=== PATIENT | male | born 1970 | race African-American/Black ===

== ENCOUNTER 2024-06-19 03:41 | Inpatient (IN) | payer OTHER ==
[~2024-06-19] VITALS: Ht 190.5 cm; Wt 102.1 kg
[~2024-06-19 03:41] MED LIST: AMLO10TA80 PO; KEPP500 MT; LOSA-413 PO
[2024-06-19 04:34] LABS: BASOPHILS % 0.7 % (0.0-2.0); EOSINOPHILS % 1.9 % (0.0-5.0); HEMATOCRIT. 37.2 % (42.0-52.0); HEMOGLOBIN. 13.3 g/dL (14.0-18.0); LYMPHOCYTES % 36.8 % (20.0-50.0); MEAN CORPUSCULAR HEMOGLOBIN 34.9 pg (28.0-32.0); MEAN CORPUSCULAR HGB CONC 35.7 g/dL (31.0-37.0); MEAN CORPUSCULAR VOLUME 97.9 fL (80.0-94.0); MEAN PLATELET VOLUME 9.4 fl (7.4-10.4); MONOCYTES % 9.3 % (2.0-8.0); NEUTROPHILS % 51.3 % (40.0-76.0); PLATELET 163 x1000/uL (130-400); RED CELL DISTRIBUTION WIDTH 13.8 % (11.6-14.6); WHITE BLOOD COUNT 4.1 x1000/uL (4.5-11.0)
[2024-06-19 04:39] LABS: CHLORIDE 111 mEq/L (98-107); POTASSIUM 4.1 mEq/L (3.5-5.1); SODIUM 142 mEq/L (136-145)
[2024-06-19 04:40] LABS: CARBON DIOXIDE 21 mEq/L (21-32)
[2024-06-19 04:45] LABS: GLUCOSE 140 mg/dL (70-105); UREA NITROGEN BLOOD 8 mg/dL (9-23)
[2024-06-19 04:47] LABS: CREATINE KINASE 330 IU/L (46-171)
[2024-06-19] MEDS: LEVETIRACETAM 1000MG PREMIX 100 ML IV ONE (04:47)
[2024-06-19 04:48] LABS: LACTIC ACID 2.8 mmol/L (0.4-2.0)
[2024-06-19 05:15] LABS: DIFFERENTIAL COMMENT 1
[2024-06-19] MEDS ORDERED: DOCUSATE SODIUM 100MG CAPSULE PO PRN (09:00)
[2024-06-19] MEDS ORDERED: IPRATROPIUM/ALBUTEROL 0.5-3(2.5)MG/3ML NEB HHN PRN (09:00)
[2024-06-19] MEDS ORDERED: LEVETIRACETAM 500MG PREMIX 100 ML IV SCH (09:00)
[2024-06-19] MEDS ORDERED: LORAZEPAM 2MG/ML INJ IV PRN ×3 (09:00→18:00)
[2024-06-19] MEDS ORDERED: MAGNESIUM/ALUMINUM HYDROXIDE/SIMETHICONE 30ML UDC PO PRN (09:00)
[2024-06-19] MEDS ORDERED: ONDANSETRON HCL 4MG/2ML INJ IV PRN (09:00)
[2024-06-19] MEDS ORDERED: LORAZEPAM 1MG TABLET PO PRN (09:00)
[2024-06-19] MEDS ORDERED: ACETAMINOPHEN 325MG TABLET PO PRN ×2 (09:00)
[2024-06-19 10:22] LABS: LDL CHOLESTEROL 50 mg/dL (5-100); TRIGLYCERIDE 655 mg/dL (0-150)
[2024-06-19 10:23] LABS: ALANINE AMINOTRANSFERASE 140 IU/L (10-49); ALBUMIN 4.3 g/dL (3.2-4.8); ASPARTATE AMINOTRANSFERASE 165 IU/L (<34); CHOLESTEROL 214 mg/dL (<200)
[2024-06-19 10:24] LABS: BILIRUBIN DIRECT 0.1 mg/dL (<=3.0); BILIRUBIN TOTAL 0.4 mg/dL (0.1-1.0); HDL CHOLESTEROL 40 mg/dL (>55); PHOSPHORUS 2.6 mg/dL (2.5-4.9); PROTEIN TOTAL 7.1 g/dL (6.0-8.3)
[2024-06-19 10:26] LABS: THYROID STIMULATING HORMONE 2.05 uIU/mL (0.55-4.78)
[2024-06-19 10:39] LABS: TROPONIN I HIGH SENSITIVITY < 4 ng/L (3.0-53)
[2024-06-19] MEDS ORDERED: LOSA50TA41 (10:44)
[2024-06-19] MEDS ORDERED: METO-539 (10:44)
[2024-06-19] MEDS ORDERED: ALLO100T (10:44)
[2024-06-19] MEDS ORDERED: GABA-1180 (10:44)
[2024-06-19 11:31] LABS: FOLIC ACID (FOLATE) SERUM 2.01 ng/mL (>5.38)
[2024-06-19 11:32] LABS: VITAMIN B12 SERUM 642 pg/mL (211-911)
[2024-06-19] MEDS: SODIUM CHLORIDE 0.9% 1,000 ML IV SCH (11:43)
[2024-06-19] MEDS: LOSARTAN 50 MG TABLET PO SCH (12:11)
[2024-06-19] MEDS: CLONIDINE 0.1MG TABLET PO PRN (12:12)
[2024-06-19 12:21] LABS: T4 FREE 1.08 ng/dL (0.89-1.76)
[2024-06-19] MEDS: FOLIC ACID 1 MG, THIAMINE HCL 100 MG, MVI, ADULT NO.1 10 ML in DEXTROSE 5% WATER 1,000 ML IV ONE (13:14)
[2024-06-19] MEDS: FISH OIL/OMEGA-3 FATTY ACIDS 1000MG CAPSULE PO SCH (13:14)
[2024-06-19] MEDS: CHLORDIAZEPOXIDE 25MG CAPSULE PO PRN (13:14)
[2024-06-19 15:12] LABS: CLARITY URINE CLEAR (CLEAR); COLOR URINE YELLOW (YELLOW); GLUCOSE URINE NEGATIVE (NEGATIVE); KETONES URINE NEGATIVE (NEGATIVE); LEUKOCYTE ESTERASE URINE NEGATIVE (NEGATIVE); NITRITE URINE NEGATIVE (NEGATIVE); OCCULT BLOOD URINE NEGATIVE (NEGATIVE); PH URINE 7.5 (4.5-8.0); PROTEIN URINE TRACE (NEGATIVE); SPECIFIC GRAVITY URINE 1.009 (1.005-1.030); UROBILINOGEN URINE 0.2 E.U./dL (0.2-1.0)
[2024-06-19 15:30] LABS: BACTERIA URINE NONE SEEN; RBC URINE NONE SEEN /hpf (0-2); SQUAMOUS EPITHELIAL CELL URINE NONE SEEN /lpf (RARE/1+); WBC URINE 0-2 /hpf (0-2); YEAST URINE NONE SEEN
[2024-06-19 15:42] LABS: *AMPHETAMINES SCREEN URINE NEGATIVE (NEGATIVE); *BARBITURATES SCREEN URINE NEGATIVE (NEGATIVE); *BENZODIAZEPINES SCREEN URINE NEGATIVE (NEGATIVE); *COCAINE SCREEN URINE NEGATIVE (NEGATIVE); CANNABINOID URINE SCREEN NEGATIVE (NEGATIVE); METHADONE URINE SCREEN NEGATIVE (NEGATIVE); OPIATES URINE SCREEN NEGATIVE (NEGATIVE); PHENCYCLIDINE URINE SCREEN NEGATIVE (NEGATIVE)
[2024-06-19 15:43] LABS: ECSTASY MDMA SCREEN URINE NEGATIVE (NEGATIVE)
[2024-06-19 17:00] VITALS: BP 154/98; PULSE 75; RESP 18; TEMP 36.50292; TEMP 36.5292; O2SAT 98
[2024-06-19 20:00] VITALS: BP 149/101; PULSE 82; RESP 19; TEMP 36.78072; O2SAT 98
[2024-06-19 20:09] LABS: CREATINE KINASE 322 IU/L (46-171)
[2024-06-19] MEDS: LEVETIRACETAM 1500MG PREMIX 100 ML IV SCH (21:41)
[2024-06-19 23:57] LABS: CREATINE KINASE 223 IU/L (46-171)
[2024-06-20] VITALS: BP 129/87; PULSE 64; RESP 20; TEMP 36.16956; O2SAT 99
[2024-06-20 04:00] VITALS: BP 114/78; PULSE 66; RESP 19; TEMP 36.3918; O2SAT 97
[2024-06-20 08:00] VITALS: BP 132/82; PULSE 71; RESP 18; TEMP 36.78072; O2SAT 100
[2024-06-20 08:55] LABS: BASOPHILS % 0.7 % (0.0-2.0); EOSINOPHILS % 2.3 % (0.0-5.0); HEMATOCRIT. 38.7 % (42.0-52.0); HEMOGLOBIN. 13.1 g/dL (14.0-18.0); LYMPHOCYTES % 36.5 % (20.0-50.0); MEAN CORPUSCULAR HEMOGLOBIN 33.9 pg (28.0-32.0); MEAN CORPUSCULAR HGB CONC 33.7 g/dL (31.0-37.0); MEAN CORPUSCULAR VOLUME 100.4 fL (80.0-94.0); MONOCYTES % 11.6 % (2.0-8.0); NEUTROPHILS % 48.9 % (40.0-76.0); RED BLOOD CELL COUNT 3.86 mill/uL (4.7-6.1); RED CELL DISTRIBUTION WIDTH 14.1 % (11.6-14.6)
[2024-06-20] MEDS ORDERED: AMLODIPINE 10MG TABLET PO SCH (09:00)
[2024-06-20 09:14] LABS: DIFFERENTIAL COMMENT 1
[2024-06-20 09:15] LABS: ADD RBC MORPHOLOGY YES
[2024-06-20 09:18] LABS: CALCIUM 9.5 mg/dL (8.7-10.4); CARBON DIOXIDE 20 mEq/L (21-32); CHLORIDE 110 mEq/L (98-107); POTASSIUM 3.6 mEq/L (3.5-5.1); SODIUM 141 mEq/L (136-145)
[2024-06-20 09:24] LABS: GLUCOSE 104 mg/dL (70-105); UREA NITROGEN BLOOD 6 mg/dL (9-23)
[2024-06-20] MEDS: THIAMINE HCL 100MG TABLET PO SCH (09:50)
[2024-06-20] MEDS: MULTIVITAMINS,THER W-MINERALS TABLET PO SCH (09:51)
[2024-06-20] MEDS: FOLIC ACID 1MG TABLET PO SCH (09:51)
[2024-06-20] MEDS: LEVETIRACETAM 1500MG PREMIX 100 ML IV SCH (11:30)
[2024-06-20 12:00] VITALS: BP 138/98; PULSE 89; RESP 20; TEMP 36.89184; O2SAT 93
[2024-06-20 15:06] VITALS: BP 138/94; PULSE 89; TEMP 98.4; O2SAT 93
[2024-06-21 09:03] LABS: PLATELET 115 x1000/uL (130-400); PLATELET ESTIMATE NORMAL
[2024-06-22 17:06] LABS: ETHANOL URINE Negative % (Cutoff=0.020)
== END 2024-06-20 16:25 | disposition home or self-care (01) | DRG 101 ==
LOC: ER 03:41 → 8WST 04:50
PROVIDERS: ADMIT Internal Medicine; ATTEND Internal Medicine
DX: G40.901 Epilepsy, unspecified, not intractable, with status epilepticus (principal); E78.5 Hyperlipidemia, unspecified; I10 Essential (primary) hypertension; D53.9 Nutritional anemia, unspecified; E78.1 Pure hyperglyceridemia; F10.20 Alcohol dependence, uncomplicated; G62.9 Polyneuropathy, unspecified; Z88.0 Allergy status to penicillin; Z79.899 Other long term (current) drug therapy; Z82.0 Family history of epilepsy and other diseases of the nervous system
CPT/HCPCS: 36415; 71045; 80048; 80061; 80076; 80305; 80320; 81003; 82550; 82607; 82746; 82962; 83605; 83735; 84100; 84439; 84443; 84484; 85025; 87493; 99291; J1953; J3411; J3490; J7070

== ENCOUNTER 2024-09-03 19:14 | Inpatient (IN) | payer OTHER ==
[~2024-09-03] VITALS: Ht 182.9 cm; Wt 98.7 kg
[~2024-09-03 19:14] MED LIST changes: +ALLO100T; +GABA-1180; +LOSA50TA41; +METO-539
[2024-09-03 19:15] VITALS: O2SAT 98
[2024-09-03 19:54] LABS: BASOPHILS % 0.5 % (0.0-2.0); EOSINOPHILS % 2.1 % (0.0-5.0); HEMATOCRIT. 40.2 % (42.0-52.0); HEMOGLOBIN. 13.6 g/dL (14.0-18.0); LYMPHOCYTES % 42.3 % (20.0-50.0); MEAN CORPUSCULAR HEMOGLOBIN 32.5 pg (28.0-32.0); MEAN CORPUSCULAR HGB CONC 33.8 g/dL (31.0-37.0); MEAN CORPUSCULAR VOLUME 96.2 fL (80.0-94.0); MONOCYTES % 10.6 % (2.0-8.0); NEUTROPHILS % 44.5 % (40.0-76.0); PLATELET 135 x1000/uL (130-400); RED BLOOD CELL COUNT 4.18 mill/uL (4.7-6.1); RED CELL DISTRIBUTION WIDTH 13.7 % (11.6-14.6); WHITE BLOOD COUNT 4.9 x1000/uL (4.5-11.0)
[2024-09-03] MEDS: SODIUM CHLORIDE 0.9% 1,000 ML IV ONE (19:57)
[2024-09-03] MEDS: LEVETIRACETAM 1000MG PREMIX 100 ML IV ONE (19:57)
[2024-09-03 20:02] LABS: CHLORIDE 108 mEq/L (98-107); POTASSIUM 4.1 mEq/L (3.5-5.1); SODIUM 143 mEq/L (136-145)
[2024-09-03 20:03] LABS: CALCIUM 9.3 mg/dL (8.7-10.4); CARBON DIOXIDE 24 mEq/L (21-32)
[2024-09-03 20:08] LABS: CREATININE 1.1 mg/dL (0.6-1.3); GLUCOSE 102 mg/dL (70-105)
[2024-09-03 20:09] LABS: ETHANOL BLOOD 16 mg/dL (<10); UREA NITROGEN BLOOD 6 mg/dL (9-23)
[2024-09-03 20:10] LABS: TROPONIN I HIGH SENSITIVITY 4 ng/L (3.0-53)
[2024-09-03 20:26] LABS: CARBAMAZEPINE < 0.4 ug/mL (4-12); PHENOBARBITAL < 3.0 ug/mL (15.0-40.0); PHENYTOIN < 2.0 ug/mL (10-20); VALPROIC ACID < 3.0 ug/mL (50-100)
[2024-09-03 23:02] LABS: CLARITY URINE CLEAR (CLEAR); COLOR URINE YELLOW (YELLOW); GLUCOSE URINE NEGATIVE (NEGATIVE); KETONES URINE NEGATIVE (NEGATIVE); LEUKOCYTE ESTERASE URINE NEGATIVE (NEGATIVE); NITRITE URINE NEGATIVE (NEGATIVE); OCCULT BLOOD URINE NEGATIVE (NEGATIVE); PROTEIN URINE NEGATIVE (NEGATIVE); SPECIFIC GRAVITY URINE 1.011 (1.005-1.030); UROBILINOGEN URINE 0.2 E.U./dL (0.2-1.0)
[2024-09-03 23:10] LABS: *AMPHETAMINES SCREEN URINE NEGATIVE (NEGATIVE); *BARBITURATES SCREEN URINE NEGATIVE (NEGATIVE); *BENZODIAZEPINES SCREEN URINE NEGATIVE (NEGATIVE); *COCAINE SCREEN URINE NEGATIVE (NEGATIVE); CANNABINOID URINE SCREEN NEGATIVE (NEGATIVE); ECSTASY MDMA SCREEN URINE NEGATIVE (NEGATIVE); METHADONE URINE SCREEN NEGATIVE (NEGATIVE); OPIATES URINE SCREEN NEGATIVE (NEGATIVE); PHENCYCLIDINE URINE SCREEN NEGATIVE (NEGATIVE)
[2024-09-03 23:50] VITALS: BP 161/117; PULSE 85; RESP 19; TEMP 36.3
[2024-09-04] VITALS: BP 161/117; PULSE 85; RESP 19; TEMP 36.3; O2SAT 99
[2024-09-04] MEDS: LOSARTAN 50 MG TABLET PO NR (01:43)
[2024-09-04 04:00] VITALS: BP 125/88; PULSE 76; RESP 20; TEMP 35.8; O2SAT 98
[2024-09-04 08:00] VITALS: BP 138/96; PULSE 80; RESP 16; TEMP 36.6; O2SAT 96
[2024-09-04 12:00] VITALS: BP 152/101; PULSE 85; RESP 16; TEMP 36.9; O2SAT 99
[2024-09-04] MEDS ORDERED: GUAIFENESIN 200MG/10ML SUGAR FREE UDC PO PRN (12:15)
[2024-09-04] MEDS ORDERED: ONDANSETRON HCL 4MG/2ML INJ IV PRN (12:15)
[2024-09-04] MEDS ORDERED: LORAZEPAM 2MG/ML UD SYRINGE IV PRN (12:15)
[2024-09-04] MEDS ORDERED: CLONIDINE 0.1MG TABLET PO PRN (12:15)
[2024-09-04] MEDS ORDERED: LORAZEPAM 0.5MG TABLET PO PRN (12:15)
[2024-09-04] MEDS ORDERED: ACETAMINOPHEN 325MG TABLET PO PRN ×2 (12:15)
[2024-09-04] MEDS ORDERED: LEVETIRACETAM 1,500MG in NACL 100ML PREMIX IV SCH (12:15)
[2024-09-04] MEDS ORDERED: IPRATROPIUM/ALBUTEROL 0.5-3(2.5)MG/3ML NEB HHN PRN (12:15)
[2024-09-04] MEDS ORDERED: HYDRALAZINE 20MG/ML VIAL IV PRN (12:15)
[2024-09-04] MEDS ORDERED: DOCUSATE SODIUM 100MG CAPSULE PO PRN (12:15)
[2024-09-04] MEDS ORDERED: DEXTROSE 50% WATER 50ML SYRINGE IV PRN (12:30)
[2024-09-04] MEDS: LOSARTAN 50 MG TABLET PO SCH (12:48)
[2024-09-04] MEDS: LEVETIRACETAM 1500MG PREMIX 100 ML IV SCH (13:12)
[2024-09-04 16:00] VITALS: BP 140/103; PULSE 94; RESP 18; TEMP 36.7; O2SAT 98
[2024-09-04] MEDS: BLOOD SUGAR DIAGNOSTIC STRIP TEST SCH (16:34)
[2024-09-04 16:37] LABS: LDL CHOLESTEROL 72 mg/dL (5-100); TRIGLYCERIDE 444 mg/dL (0-150)
[2024-09-04 16:38] LABS: ALANINE AMINOTRANSFERASE 67 IU/L (10-49); ASPARTATE AMINOTRANSFERASE 67 IU/L (<34); CREATINE KINASE 274 IU/L (46-171)
[2024-09-04 16:39] LABS: BILIRUBIN DIRECT 0.2 mg/dL (<=3.0); BILIRUBIN TOTAL 0.9 mg/dL (0.1-1.0); CHOLESTEROL 194 mg/dL (<200); HDL CHOLESTEROL 46 mg/dL (>55); PROTEIN TOTAL 7.6 g/dL (6.0-8.3)
[2024-09-04 20:00] VITALS: BP 127/87; PULSE 79; RESP 17; TEMP 36.9; O2SAT 97
[2024-09-05] VITALS: BP 153/112; PULSE 82; RESP 17; TEMP 36.4; O2SAT 100
[2024-09-05 00:27] LABS: CREATINE KINASE 237 IU/L (46-171)
[2024-09-05 04:00] VITALS: BP 139/100; PULSE 86; RESP 17; TEMP 36.4; O2SAT 100
[2024-09-05 06:20] LABS: CARBON DIOXIDE 24 mEq/L (21-32); CHLORIDE 106 mEq/L (98-107); POTASSIUM 3.6 mEq/L (3.5-5.1); SODIUM 139 mEq/L (136-145)
[2024-09-05 06:22] LABS: CALCIUM 9.8 mg/dL (8.7-10.4)
[2024-09-05 06:25] LABS: CREATININE 1.1 mg/dL (0.6-1.3)
[2024-09-05 06:26] LABS: GLUCOSE 99 mg/dL (70-105); UREA NITROGEN BLOOD 14 mg/dL (9-23)
[2024-09-05 06:43] LABS: BASOPHILS % 0.5 % (0.0-2.0); EOSINOPHILS % 1.9 % (0.0-5.0); HEMATOCRIT. 40.1 % (42.0-52.0); HEMOGLOBIN. 13.4 g/dL (14.0-18.0); LYMPHOCYTES % 34.2 % (20.0-50.0); MEAN CORPUSCULAR HEMOGLOBIN 32.4 pg (28.0-32.0); MEAN CORPUSCULAR HGB CONC 33.5 g/dL (31.0-37.0); MEAN CORPUSCULAR VOLUME 96.8 fL (80.0-94.0); NEUTROPHILS % 51.4 % (40.0-76.0); RED BLOOD CELL COUNT 4.14 mill/uL (4.7-6.1); RED CELL DISTRIBUTION WIDTH 13.8 % (11.6-14.6); WHITE BLOOD COUNT 7.1 x1000/uL (4.5-11.0)
[2024-09-05] MEDS: PANTOPRAZOLE 40MG DR TABLET PO SCH (06:45)
[2024-09-05 07:45] LABS: DIFFERENTIAL COMMENT 1
[2024-09-05 08:00] VITALS: BP 144/95; PULSE 67; RESP 18; TEMP 36.5; O2SAT 94
[2024-09-05 12:00] VITALS: BP 124/93; PULSE 20; RESP 20; TEMP 36.3; O2SAT 97
[2024-09-05 14:25] LABS: PLATELET 108 x1000/uL (130-400)
== END 2024-09-05 14:50 | disposition home or self-care (01) | DRG 101 ==
LOC: ER 19:14 → 5WST 21:50
PROVIDERS: ADMIT Internal Medicine; ATTEND Internal Medicine
DX: G40.909 Epilepsy, unspecified, not intractable, without status epilepticus (principal); I16.0 Hypertensive urgency; I10 Essential (primary) hypertension; F10.229 Alcohol dependence with intoxication, unspecified; Y90.0 Blood alcohol level of less than 20 mg/100 ml; G62.9 Polyneuropathy, unspecified; M10.9 Gout, unspecified; Z88.0 Allergy status to penicillin; Z79.899 Other long term (current) drug therapy
CPT/HCPCS: 36415; 80048; 80061; 80076; 80156; 80165; 80184; 80185; 80305; 80320; 81003; 82550; 82962; 84484; 85025; 93005; 99285; A4606; J1953; J7030; G0480